=== PATIENT | female | born 1995 | race Caucasian/White ===

== ENCOUNTER 2018-04-21 22:21 | Emergency (ER) | END 2018-04-22 05:30 | disposition home or self-care (01) ==

== ENCOUNTER 2019-02-04 23:19 | Outpatient (CLI) | payer MEDICAID ==
[~2019-02-04] VITALS: Ht 170.2 cm; Wt 90.2 kg
[~2019-02-04 23:19] MED LIST: ACYC800T PO; ALBU18HF INHALATION; BEN25 PO; GUAI5SYR2 PO; NAPR-985 PO; OXYM15SP34 NASAL; PRED20TA PO; RANI150C11; SIMETHICON
[2019-02-05 01:33] VITALS: Ht 170.2 cm; Wt 90.2 kg
[2019-02-05 01:34] VITALS: BP 119/62; PULSE 96; RESP 17
[2019-02-05] MEDS ORDERED: PREN1TAB13 PO (01:36)
--- NOTE | 2019-02-05 05:21 | TRIAGE ---
OB Triage Datetime Report Generated by CPN: 02/05/2019 05:21 Datetime: 02/05/2019 03:09 Labor Evaluation Frequency: X0 Monitor Mode: External Duration (sec)2399: X0 Pattern: Normal: <= 5 Contractions in 10 Minutes Resting Tone [place]: Relaxed Contraction Comments: ABDOMEN SOFT UPON PALPATION. Heart Rate FHR Baseline Rate: 145 Monitor Mode: External US Variability: Moderate 6-25 bpm Accelerations: 15X15 Decelerations: None Category: Category I Comments: AUDIBLE HEART TONES @145BPM Datetime: 02/05/2019 02:00 Stage of : OB Triage Labor Evaluation Frequency: X0 Monitor Mode: External Duration (sec)2399: X0 Pattern: Normal: <= 5 Contractions in 10 Minutes Resting Tone [place]: Relaxed Heart Rate FHR Baseline Rate: 145 Monitor Mode: External US Variability: Moderate 6-25 bpm Accelerations: 15X15 Decelerations: None Category: Category I Datetime: 02/05/2019 01:10 EGA: 30.4 Datetime: 02/05/2019 01:09 EGA: 26.6 Datetime: 02/05/2019 01:05 Stage of : OB Triage Labor Evaluation Frequency: X2 Monitor Mode: External Duration (sec)2399: 50 Quality: Mild Pattern: Normal: <= 5 Contractions in 10 Minutes Resting Tone [place]: Relaxed Heart Rate FHR Baseline Rate: 145 Monitor Mode: External US Variability: Moderate 6-25 bpm Accelerations: 15X15 Decelerations: None Category: Category I Datetime: 02/05/2019 00:00 Stage of : OB Triage Labor Evaluation Frequency: X1 Monitor Mode: External Duration (sec)2399: 50 Quality: Mild Pattern: Normal: <= 5 Contractions in 10 Minutes Resting Tone [place]: Relaxed Heart Rate FHR Baseline Rate: 150 Monitor Mode: External US Variability: Moderate 6-25 bpm Accelerations: 15X15 Decelerations: None Category: Category I Datetime: 02/04/2019 23:30 Time of Arrival: 02/05/2019 23:10 EGA: 30.4 Arrived By: Wheelchair Arrived From: Home Chief Complaint: SPOTTING Movement: Present Contractions: Denies/Absent Rupture of Membranes: Denies Vaginal Bleeding: Scant Vaginal Discharge: Denies Recent Sexual Intercouse: Denies Abdominal Trauma: Not Applicable Patient Complaints: Other Time Provider Notified: 02/05/2019 00:10 Provider Notified: DR. LUI Initial Plan: EFM, CALL OB Datetime: 02/04/2019 23:25 Monitor Mode: External Contraction Comments: APPLIED Monitor Mode: External US Comments: APPLIED
--- NOTE | 2019-02-05 05:26 | PN ---
Triage Information Date/Time Late entry note for exam done February 04, 2019 Reason for visit: Vag spotting / bleeding Weeks of Gestation 30 weeks and 4 days /Para 1 para 0 Diabetes: none Hypertention: none Additional information 23-year-old G1, P0 with IUP at 30 weeks and 4 days presented with complaint of spotting and occasional contractions. She has not feeling the contractions. She denies any leaking of fluid or decreased movement. She denies any complication during her course. Denies any urinary symptoms. Objective Vital Signs Date Temp Pulse Resp B/P (MAP) Pulse Ox O2 O2 Flow FiO2 Time Delivery Rate 02/05/19 98.9 96 17 119/62 Room Air 01:34 (81) Heart Rate: 130's Heart Rate Comments Category 1 tracing Chief contraction noted only in 13 minutes. Patient was not feeling them Exam General appearance: Alert and oriented x4 does not appear to be in any acute distress Abdomen: Soft, gravid, fundal height consider gestational age NST: Category 1 Occasional infrequent contraction noted and patient has not been feeling it BPP: 03/30 MARY: 12.47 Cervical length: 3.4 cm VS - Last 72 Hours, by Label Date Temp Pulse Resp B/P (MAP) Pulse Ox O2 O2 Flow FiO2 Time Delivery Rate 02/05/19 98.9 96 17 119/62 Room Air 01:34 (81) Laboratory Tests Test 02/04/19 23:30 02/05/19 01:11 Urine Color YELLOW Urine Clarity SLIGHTLY CLOUDY A Urine pH 6.0 Urine Specific [place] 1.013 Urine Ketones NEGATIVE Urine Nitrite NEGATIVE Urine Bilirubin NEGATIVE Urine Urobilinogen NEGATIVE Urine Leukocyte Esterase NEGATIVE Urine Microscopic RBC 0 Urine Microscopic WBC 1 Urine Squamous Epithelial Cells FEW Urine Hemoglobin NEGATIVE Urine Glucose 1+ H Urine Total Protein NEGATIVE White Blood Count 9.5 Red Blood Count 3.08 L Hemoglobin 8.9 L Hematocrit 28.0 L Mean Corpuscular Volume 90.9 Mean Corpuscular Hemoglobin 28.9 L Mean Corpuscular Hemoglobin Concent 31.8 L Red Cell Distribution Width 13.7 Platelet Count 293 Mean Platelet Volume 10.2 Immature Granulocytes % 3.400 H Neutrophils % 69.6 Lymphocytes % 17.5 Monocytes % 7.2 Eosinophils % 1.8 Basophils % 0.5 Nucleated Red Blood Cells % 0.3 H Immature Granulocytes # 0.320 H Neutrophils # 6.6 Lymphocytes # 1.7 Monocytes # 0.7 Eosinophils # 0.2 Basophils # 0.1 Nucleated Red Blood Cells # 0.0 Urine Results - 72 Hrs Test 02/04/19 23:30 Urine Color YELLOW (YELLOW) Urine Clarity SLIGHTLY CLOUDY (CLEAR) Urine pH 6.0 (5.0-9.0) Urine Specific [place] 1.013 (1.003-1.030) Urine Ketones NEGATIVE mg/dL (NEGATIVE) Urine Nitrite NEGATIVE mg/dL (NEGATIVE) Urine Bilirubin NEGATIVE mg/dL (NEGATIVE) Urine Urobilinogen NEGATIVE mg/dL (NEGATIVE) Urine Leukocyte Esterase NEGATIVE Georgette/ul Urine Microscopic RBC 0 /HPF (0-5) Urine Microscopic WBC 1 /HPF (0-5) Urine Squamous Epithelial Cells FEW /HPF (FEW) Urine Hemoglobin NEGATIVE mg/dL (NEGATIVE) Urine Glucose 1+ mg/dL (NEGATIVE) H Urine Total Protein NEGATIVE mg/dl (NEGATIVE) Results/Medications Result Diagram: 02/05/19 0111 Results 24 hrs Laboratory Tests Test 02/04/19 23:30 02/05/19 01:11 Urine Color YELLOW Urine Clarity SLIGHTLY CLOUDY A Urine pH 6.0 Urine Specific [place] 1.013 Urine Ketones NEGATIVE Urine Nitrite NEGATIVE Urine Bilirubin NEGATIVE Urine Urobilinogen NEGATIVE Urine Leukocyte Esterase NEGATIVE Urine Microscopic RBC 0 Urine Microscopic WBC 1 Urine Squamous Epithelial Cells FEW Urine Hemoglobin NEGATIVE Urine Glucose 1+ H Urine Total Protein NEGATIVE White Blood Count 9.5 Red Blood Count 3.08 L Hemoglobin 8.9 L Hematocrit 28.0 L Mean Corpuscular Volume 90.9 Mean Corpuscular Hemoglobin 28.9 L Mean Corpuscular Hemoglobin Concent 31.8 L Red Cell Distribution Width 13.7 Platelet Count 293 Mean Platelet Volume 10.2 Immature Granulocytes % 3.400 H Neutrophils % 69.6 Lymphocytes % 17.5 Monocytes % 7.2 Eosinophils % 1.8 Basophils % 0.5 Nucleated Red Blood Cells % 0.3 H Immature Granulocytes # 0.320 H Neutrophils # 6.6 Lymphocytes # 1.7 Monocytes # 0.7 Eosinophils # 0.2 Basophils # 0.1 Nucleated Red Blood Cells # 0.0 Imaging Results PROCEDURE: US OB biophysical profile. CLINICAL INDICATION: Vaginal bleeding TECHNIQUE: Multiple sonographic images of the pelvis were obtained. The images were reviewed on a PACS workstation. COMPARISON: 12/01/2018. FINDINGS: Single live intrauterine gestation. MARY = 12.47 cm. Cardiac activity is present with 152 beats per minute. Breech presentation. Placental location is posterior. No evidence of previa or abruption. The cervix is closed and measures 3.4 cm in length. Biophysical profile as follows: movement 2/2 tone 2/2 breathing 2/2 MARY 2/2 Total 03/30 IMPRESSION: Biophysical profile 03/30. RPTAT: HJBB Disposition: Discharge Assessment/Plan IUP at 30 weeks and 4 days Spotting, resolved No evidence of labor Evidence of PPROM testing reassuring Patient was discharged home in stable condition with pelvic rest Strict labor precautions kick count discussed with patient Signs and symptoms explained. Patient verbalized understanding. All questions answered to patient with satisfaction. PAOLA LUI MD Feb 05, 2019 05:26
== END 2019-02-05 03:20 | disposition home or self-care (01) ==
LOC: L-D 23:19 → OBT 23:19
PROVIDERS: ATTEND Obstetrics & Gynecology
DX: O62.9 Abnormality of forces of labor, unspecified (principal); O26.853 Spotting complicating pregnancy, third trimester; Z3A.30 30 weeks gestation of pregnancy
CPT/HCPCS: 76815; 76817; 76818; 81001; 81003; 85025; 86850; 86900; 86901; Z7500; G0463

== ENCOUNTER 2019-04-06 06:50 | Inpatient (IN) | payer MEDICAID ==
[~2019-04-06] VITALS: Ht 172.7 cm; Wt 98.3 kg
[~2019-04-06 06:50] MED LIST changes: -ACYC800T PO; -ALBU18HF INHALATION; -BEN25 PO; -GUAI5SYR2 PO; -NAPR-985 PO; -OXYM15SP34 NASAL; -PRED20TA PO; +PREN1TAB13 PO; -RANI150C11; -SIMETHICON
[2019-04-06 07:03] VITALS: Ht 172.7 cm; Wt 98.3 kg
[2019-04-06 07:04] VITALS: BP 137/93; PULSE 82; RESP 18
[2019-04-06] MEDS ORDERED: OXYTOCIN 30 UNITS/LR 500 ML IV PRN (14:00)
[2019-04-06] MEDS ORDERED: METHYLERGONOVINE 0.2 MG INJ IM PRN (14:00)
[2019-04-06] MEDS ORDERED: MISOPROSTOL 200 MCG TAB PR PRN (14:00)
[2019-04-06] MEDS ORDERED: AMPICILLIN 2 GM/NS (PMX) 100 ML IV ONE (14:00)
[2019-04-06] MEDS ORDERED: CARBOPROST 250 MCG INJ IM PRN (14:00)
[2019-04-06] MEDS ORDERED: BUTORPHANOL 2 MG INJ IV PRN ×2 (14:00)
[2019-04-06] MEDS ORDERED: LIDOCAINE 1% (MPF) 30 ML INJ INJ PRN (14:00)
[2019-04-06] MEDS ORDERED: OXYTOCIN 30 UNITS/LR 500 ML IV SCH ×3 (14:00)
[2019-04-06] MEDS: LACTATED RINGER'S 1,000 ML IV SCH ×3 (14:10→23:55)
[2019-04-06] MEDS ORDERED: LACTATED RINGER'S 1,000 ML IV ONE (17:00)
[2019-04-06] MEDS ORDERED: FENTAnyl 2MCG/ML-ROPIV 0.2% 100 ML ONE (17:02)
[2019-04-06] MEDS ORDERED: FENTAnyl 2MCG/ML-ROPIV 0.2% 100 ML BAG EPI SCH (17:30)
[2019-04-06] MEDS ORDERED: NALOXONE (0.4 MG/ML) INJ IV PRN (17:30)
[2019-04-06] MEDS: AMPICILLIN 1 GM/NS (PMX) 50 ML IV SCH ×2 (19:05→22:38)
[2019-04-07 03:00] VITALS: BP 132/78; PULSE 94; RESP 18
[2019-04-07 04:00] VITALS: BP 132/84; PULSE 101; RESP 18
[2019-04-07] MEDS ORDERED: LANOLIN HPA 1 PKT TOP PRN (04:00)
[2019-04-07] MEDS ORDERED: WITCH HAZEL/GLYCERIN PAD PR PRN (04:00)
[2019-04-07] MEDS ORDERED: OXYCODONE/ASPIRIN (4.88/325) TAB PO PRN ×2 (04:00)
[2019-04-07] MEDS ORDERED: MISOPROSTOL 200 MCG TAB PR PRN (04:00)
[2019-04-07] MEDS ORDERED: ZOLPIDEM 5 MG TAB PO PRN (04:00)
[2019-04-07] MEDS ORDERED: METHYLERGONOVINE 0.2 MG INJ IM PRN (04:00)
[2019-04-07] MEDS ORDERED: CARBOPROST 250 MCG INJ IM PRN (04:00)
[2019-04-07] MEDS ORDERED: OXYTOCIN 30 UNITS/LR 500 ML IV PRN (04:00)
[2019-04-07] MEDS: BENZOCAINE 20% 56 ML SPRAY TOP PRN (05:28)
[2019-04-07] MEDS: IBUPROFEN 600 MG TAB PO SCH ×3 (05:30→18:00)
[2019-04-07 08:00] VITALS: BP 108/64; PULSE 90; RESP 19
[2019-04-07] MEDS: SENNA/DOCUSATE NA (8.6MG/50MG) TAB PO SCH ×2 (09:44→21:43)
[2019-04-07 12:00] VITALS: BP 112/73; PULSE 96; RESP 18
[2019-04-07 17:32] VITALS: BP 121/71; PULSE 99; RESP 18
[2019-04-07 20:50] VITALS: BP 119/77; PULSE 97; RESP 18
[2019-04-08] MEDS: IBUPROFEN 600 MG TAB PO SCH ×4 (00:10→18:07)
[2019-04-08 04:15] VITALS: BP 115/66; PULSE 101; RESP 19
[2019-04-08 08:00] VITALS: BP 118/76; PULSE 92; RESP 16
[2019-04-08] MEDS: SENNA/DOCUSATE NA (8.6MG/50MG) TAB PO SCH (08:09)
[2019-04-08] MEDS ORDERED: DIPHTH/TET/ACEL PERTUSS (ADULT) 0.5 ML VIAL IM* ONE (13:30)
[2019-04-08 16:00] VITALS: BP 122/72; PULSE 86; RESP 18
[2019-04-08] MEDS: BENZOCAINE 20% 56 ML SPRAY TOP PRN (18:07)
[2019-04-09] MEDS ORDERED: DIPHTH/TET/ACEL PERTUSS (ADULT) 0.5 ML VIAL IM* ONE (09:00)
== END 2019-04-08 19:01 | disposition home or self-care (01) | DRG 807 ==
LOC: OBT 06:50 → L-D 06:50 → OBT 13:30 → L-D 13:30 → PP1 04-07 02:53
PROVIDERS: ADMIT Obstetrics & Gynecology Obstetrics; ATTEND Obstetrics & Gynecology
PROC: 10E0XZZ Delivery of Products of Conception, External Approach (ICD-10-PCS; principal; 2019-04-07)
PROC: 0W8NXZZ Division of Female Perineum, External Approach (ICD-10-PCS; 2019-04-07)
DX: O76 Abnormality in fetal heart rate and rhythm complicating labor and delivery (principal); O75.89 Other specified complications of labor and delivery; R03.0 Elevated blood-pressure reading, without diagnosis of hypertension; O36.63X0 Maternal care for excessive fetal growth, third trimester, not applicable or unspecified; O69.1XX0 Labor and delivery complicated by cord around neck, with compression, not applicable or unspecified; O77.0 Labor and delivery complicated by meconium in amniotic fluid; Z37.0 Single live birth; Z3A.39 39 weeks gestation of pregnancy; Z23 Encounter for immunization
CPT/HCPCS: 62322; 76815; 76818; 80053; 81003; 84112; 84560; 85025; 85610; 85730; 86592; 86850; 86900; 86901; 90715; 99464; G0463; J0290; J0595; J2590; J3010; J7120